=== PATIENT | male | born 1940 | race Caucasian/White ===

== ENCOUNTER 2020-08-23 12:51 | Inpatient (IN) | payer MEDICARE, SELFPAY ==
[2020-08-23] VITALS (7 sets, daily range): BP systolic 133–178; BP diastolic 52–99; PULSE 31–94; RESP 14–17; TEMP 36.2–36.5; O2SAT 96–100; BMI 23.9
--- NOTE | 2020-08-23 | ECHO_ITS ---
Patient Info Name: Leandro Geller Age: 80 years : 1940 Gender: Male Ht: 71 in Wt: 165 lbs BSA: 1.94 m2 HR: 32 bpm BP: 153 / 52 mmHg Heart Rhythm: Indeterminant Technical Quality: Good Exam Date: 08/23/2020 4:05 PM Exam Location: [facility] Patient Status: Emergency Admit Date: 08/23/2020 Staff Ordering Physician: Isidro Pozo MD [employer] [facility] Specialist: Yonatan Mcwilliams RDCS Attending Provider: Isidro Pozo MD Referring Physician: Sánchez FISH; Exam Type: CA echo doppler color flow Study Info Indications I44.2 - Atrioventricular block, complete Complete two-dimensional, color flow and Doppler transthoracic echocardiogram is performed. History/Risk Factors Complete heart block. Summary 1. Complete two-dimensional, color flow and Doppler transthoracic echocardiogram is performed. 2. Left ventricular chamber dimension is normal. 3. Left ventricular systolic function is normal, estimated at 65-70%. 4. There is mildly increased left ventricular wall thickness. 5. Left ventricular septal wall motion is normal. 6. The left ventricular diastolic function is indeterminate. 7. There is mild aortic valve calcification. 8. There is mild mitral valve regurgitation. 9. There is mild tricuspid valve regurgitation. Left Ventricle Left ventricular chamber dimension is normal. Left ventricular systolic function is normal, estimated at 65-70%. There is mildly increased left ventricular wall thickness. Left ventricular septal wall motion is normal. The left ventricular diastolic function is indeterminate. Right Ventricle Right ventricular chamber dimension is normal. Right ventricular systolic function is normal. Left Atria Left atrial chamber dimension is normal. Right Atria Right atrial chamber dimension is normal. Atrial Septum Intact interatrial septum visualized by color flow imaging. Aortic Valve The aortic valve is trileaflet. There is mild aortic valve sclerosis. There is no aortic valve stenosis. There is trace aortic valve regurgitation. There is mild aortic valve calcification. Pulmonic Valve The pulmonic valve is normal. There is no pulmonic valve stenosis. There is trace pulmonic regurgitation. Mitral Valve The mitral valve has thickened leaflets. There is no mitral valve stenosis. There is mild mitral valve regurgitation. Tricuspid Valve The tricuspid valve leaflets are normal. There is no significant tricuspid valve stenosis. There is mild tricuspid valve regurgitation. Pericardium/Pleural The pericardium appears normal. There is no pericardial effusion. Inferior Vena Cava Normal inferior vena cava with <50% collapse upon inspiration consistent with elevated right atrial pressure, 10 mmHg. Aorta The aortic root size at the sinus of Valsalva is normal. Left Ventricular Outflow Tract Name Value Normal LVOT 2D LVOT Diameter 2.2 cm Mitral Valve Name Value Normal MV Doppler
--- NOTE | ~2020-08-23 | XR_ITS ---
EXAMINATION: XR chest 2V EXAM DATE: 08/25/2020 08:15 INDICATION: Pacemaker insertion. TECHNIQUE: Frontal and lateral projections of the chest obtained and reviewed. Comparison is made to prior examination from 08/04/2020. FINDINGS: There is a dual lead pacemaker/AICD seen with leads projecting over the expected locations of the right atrial appendage and right ventricle. No confluent consolidation, pneumothorax or pleur al effusion suspected. Cardiomediastinal silhouette is normal. There are no osseous abnormalities jade ntified. IMPRESSION: No evidence postprocedure pneumothorax. Reviewed, dictated and finalized at location A. ITURE SERVICER
--- NOTE | ~2020-08-23 | XR_ITS ---
EXAMINATION: XR chest 1V portable EXAM DATE: 08/23/2020 14:12 INDICATION: Dizziness, lightheadedness. Bradycardia. TECHNIQUE: Portable AP frontal chest x-ray was obtained. There is no prior study for comparison. FINDINGS: Moderate chronic hyperinflation. The lungs are clear. There are no pleural effusions. The cardiomediastinal silhouette is within normal limits. There is no pneumothorax suspected. The bone s and soft tissues are unremarkable. IMPRESSION: 1. No acute cardiopulmonary findings. 2. Hyperinflation. Reviewed, dictated and finalized at location A. STACK CLOUD CONSULTING ARCHITECT
--- NOTE | ~2020-08-23 | XR_ITS ---
XR chest port-a-cath/central DATE: 08/24/2020 17:19 INDICATION: Pacemaker insertion TECHNIQUE: Portable AP chest on 08/16/2020 at 1718 hours COMPARISON: 08/23/2020 portable AP chest FINDINGS: Left-sided transvenous pacemaker device with leads overlying right atrium and right ventric le. Normal heart size. Mild aortic unfolding. No hilar or mediastinal enlargement. No pulmonary vascu lar congestion or pleural effusion. No pulmonary infiltrate or consolidation. Diffuse osteopenia. IMPRESSION: Left dual-lead pacemaker device No active cardiac pulmonary disease Reviewed, dictated and finalized at [facility]. Reviewed, dictated and finalized at [facility]. IFIED DIALYSIS TECHNICIAN
--- NOTE | 2020-08-23 13:02 | ECG_ITS ---
Measurements Intervals [place] Rate: 30 P: IN: 0 QRS: 225 QRSD: 161 T: -24 QT: 500 QTc: 358 Interpretive Statements SINUS RHYTHM WITH COMPLETE HEART BLOCK SLOW JUNCTIONAL ESCAPE RHYTHM RIGHT BUNDLE BRANCH BLOCK ABNORMAL ECG Electronically Signed On 08-23-2020 13:20:27 ELECTRICIAN TECHNICIAN by Irineo Shipley D.O.
[2020-08-23 13:47] LABS: Basophils Percent Auto 0.3 % (0.2-1.2); Eosinophils Percent Auto 0.6 % (0-4.4); Hematocrit 45.1 % (42.0-52.0); Hemoglobin 15.2 g/dL (14.0-18.0); Immature Granulocyte Absolute 0.04 K/mm3 (0.00-0.031); Immature Granulocyte Percent A 0.6 % (0-0.5); Immature Platelet Fraction Pct 5.3 % (0.9-11.2); Lymphocytes Absolute Auto 0.82 K/mm3 (0.9-3.2); Mean Corpuscular HGB Conc 33.7 g/dl (32-36); Mean Corpuscular Volume 91.9 fl (80-100); Mean Platelet Volume 11.1 fl (7.4-10.4); Monocytes Absolute Auto 0.6 K/mm3 (0.1-0.6); Monocytes Percent Auto 8.7 % (2.6-8.5); Neutrophils Absolute Auto 5.3 K/mm3 (1.3-6.7); Neutrophils Percent Auto 77.8 % (45.5-73.1); Platelet Count Result 137 k/mm3 (150-375); Red Blood Count 4.91 M/mm3 (4.6-6.20); Red Cell Distribution Width 13.2 % (11.5-14.5); White Blood Count 6.8 K/mm3 (4.5-10.0)
--- NOTE | 2020-08-23 13:57 | ED.ARRPALP ---
HPI - Arrhythmia/Palpitations General Chief Complaint: Arrhythmia/Palpitations Stated Complaint: lightheaded/dizziness Time Seen by Provider: 08/23/20 13:20 History of Present Illness HPI narrative: Patient is a 80-year-old male who presents ER with lightheadedness. First episode began last night while walking up steps. He got to the top of the steps when he had less than a second of lightheadedness for things went dark. He had no symptoms me after. Today while playing his car into his garage he had another episode like this. Because of these subsequent episodes he felt pertinent to come to the ER to be evaluated. He has not had any chest pain, no exertional shortness of breath or fatigue. No syncope. Patient does not take any rate control medications. Related Data Home Medications Medication Instructions Recorded Confirmed aspirin 81 mg tablet,delayed 81 mg PO 1700 06/21/19 08/23/20 release finasteride 5 mg tablet 5 mg PO DAILY 06/21/19 08/23/20 timolol maleate 0.5 % eye drops 1 drop LEFT EYE DAILY 06/21/19 08/23/20 latanoprost 1 drp EACH EYE QPM 08/23/20 08/23/20 terazosin 10 mg PO HS 08/23/20 08/23/20 Allergies Allergy/AdvReac Type Severity Reaction Status Date / Time hydrocodone Allergy Severe SWEATY, Verified 08/23/20 13:18 WEAKNESS, DIZZY FEELING penicillin G Allergy Unknown Unknown Verified 08/23/20 13:18 bacitracin Allergy Blister Verified 08/23/20 13:18 [From Neosporin ([id number])] neomycin Allergy Blister Verified 08/23/20 13:18 [From Neosporin ([id number])] polymyxin B Allergy Blister Verified 08/23/20 13:18 [From Neosporin ([id number])] GLUMA Allergy Severe GUM Uncoded 02/21/20 09:03 BLISTERS Review of Systems Review of Systems: All systems reviewed & are unremarkable except as noted in HPI and below Constitutional: Constitutional: Denies chills, Denies fever(s) and Denies weakness ENT: Denies nasal congestion and Denies sore throat Cardiovascular: Cardiovascular: Denies chest pain, Denies rapid heart rate, Denies radiating jaw, neck or arm pain and Denies slow heart rate Respiratory: Respiratory: Denies cough, Denies dyspnea and Denies wheezing Gastrointestinal: Gastrointestinal: Denies abdominal pain, Denies nausea and Denies vomiting Neurologic: Reports dizziness, Denies syncope and Denies numbness PMFSH Past Medical History Medical History (Updated 08/23/20 @ 23:42 by Isidro Pozo MD) Benign prostatic hyperplasia Cervical radiculopathy Essential hypertension Glaucoma Internal hemorrhoids Nephrolithiasis Prediabetes Surgical History Surgical History (Updated 08/23/20 @ 18:57 by Raven Alvarez PA-C) History of bilateral inguinal hernia repair History of bladder surgery Removal of benign bladder polyp. History of colonoscopy with polypectomy Tubular adenoma. History of cystoscopy History of excision of pilonidal cyst History of hemorrhoidectomy Family History Family History (Updated 08/23/20 @ 18:58 by Raven Alvarez PA-C) Sibling Diabetes mellitus Alcoholism Mother Patient's mother is from complications of emphysema. Father Patient's father is at the age of 49 from sepsis. Social History Social History (Updated 08/23/20 @ 18:59 by Raven Alvarez PA-C) Social History: The patient lives in [place] with his . They have 2 adult children, both of whom are adopted. Retired from [employer]. Lifelong nonsmoker. Drinks perhaps 1 beer a day at the most. No illicit substance use. He designates his Elinor as his surrogate decision maker and he wishes to be a full code. Alcohol intake: current Drinks per week: 7 Substance use: never Spiritual care concerns: No Exam Narrative: Exam Narrative: GENERAL: Well-appearing, well-nourished, and in no acute distress. HEAD: Normocephalic, atrau
[2020-08-23 14:01] LABS: Alanine Aminotransferase 101 U/L (4-50); Albumin Level 4.3 g/dL (3.5-5.1); Alkaline Phosphatase 75 U/L (38-126); Anion Gap 5 mmol/L (8-16); Aspartate Amino Transferase 43 U/L (17-59); Bilirubin,Total 0.8 mg/dL (0.2-1.3); Blood Urea Nitrogen 38 mg/dL (9-20); Calcium 9.3 mg/dL (8.4-10.2); Carbon Dioxide 26 mmol/L (22-30); Chloride 109 mmol/L (98-107); Estimated CRCL calculation 39 ml/min; Estimated Glomerular Filt Rate 59; Glucose 132 mg/dL (75-110); Potassium 4.6 mmol/L (3.4-5.0); Sodium 140 mmol/L (137-145)
[2020-08-23 14:16] LABS: Troponin I < 0.012 ng/mL (0.000-0.034)
[2020-08-23 14:32] LABS: Magnesium 2.2 mg/dL (1.6-2.3)
[2020-08-23 14:47] LABS: Add Urine Microscopic? YES; Appearance Urine Clear (Clear); Bilirubin Urine Negative (Negative); Blood Urine 1+ (Negative); Color Urine Yellow (Yellow); Glucose Urine UA Negative (Negative); Ketones Urine Trace mg/dL (Negative); Leukocyte Esterase Ur Trace LEU/UL (Negative); Mucus Urine Rare /lpf; Nitrate Urine Negative (Negative); Protein Urine 1+ mg/dL (Negative); Specific Grav Ur 1.029 (1.001-1.035); Urobilinogen Urine Negative mg/dL (<2.0)
--- NOTE | 2020-08-23 15:21 | PC.NURSE ---
SPOKE WITH DR PEDROZA VIA PHONE. HE IS REQUESTING THAT PT GET A STAT BEDSIDE ECHO TO EVALUATE PT'S EJECTION FRACTION. DR MEYER MADE AWARE. HE IS ALSO REQUESTING A TEMPORARY PACEMAKER FOR THE PT AND SAYS THAT SINCE WE DON'T HAVE A ER PHYSICIAN THAT CAN PUT ONE IN THAT DR HAGER OR DR BRADY WILL BE PLACING ONE FOR THE PT AND THAT DR HAGER WILL PLACE PERMANENT ONE TOMORROW.
--- NOTE | 2020-08-23 15:23 | PM.CNCAR ---
Assessment and Plan Assessment and plan (1) Complete heart block: Code(s): I44.2 - Atrioventricular block, complete Status: Acute Assessment and Plan: Patient has complete heart block. He will proceed to have a temporary pacemaker today. Permanent pacemaker is to be performed tomorrow by Dr. mota. He is not on any reversible medications. I will check a TSH and free T4 level. Obviously though given his wide complex escape rhythm and complete heart block, temporary pacemaker is warranted until permanent pacer can be placed tomorrow. (2) Pre-syncope: Code(s): R55 - Syncope and collapse Status: Acute Assessment and Plan: Secondary to above (3) Essential (primary) hypertension: Code(s): I10 - Essential (primary) hypertension Status: Acute Assessment and Plan: Above goal (4) Prediabetes: Code(s): R73.03 - Prediabetes Status: Acute History of Present Illness History of Present Illness Consult date/time: 08/23/20 15:23 Requesting physician: Isidro Pozo MD Consult reason: Other (Complete heart block) Reason For Visit: lightheaded/dizziness Narrative: Date of service 08/23/2020 History patient is a 80-year-old male who has had a couple episodes of presyncope over the past couple of days. Patient has been relatively inactive over the past several months because of COVID. He did have an episode of lightheadedness a few months ago whenever he stood up after drinking some coffee. He was outside trimming some trees recently 1 every felt more dyspneic than he typically would. His more acute symptoms of started yesterday. While starting to climb up some steps from his basement he felt severely lightheaded and nearly passed out but the symptoms only lasted for couple of seconds. He woke up this morning feeling fine. He was pulling into his driveway this morning whenever he also became acutely and severely lightheaded. He then went to Dr. Emmanuel is office where an EKG showed significant bradycardia. He was then sent to the emergency room where EKG shows complete heart block with a right bundle branch appearing escape beats with a heart rate in the 20s to 30s. Occasionally narrow complex beats are seen but generally speaking a wider complex escape rhythm. He has had some shortness of breath. Otherwise no chest pain, syncope, paroxysmal nocturnal dyspnea, orthopnea, edema palpitations. Review of Systems Review of Systems: All systems reviewed & are unremarkable except as noted in HPI and below Constitutional: Constitutional: Reports weakness Eyes: Eyes: Denies blurry vision ENT: Reports Normal hearing present Cardiovascular: Cardiovascular: Denies chest pain and Reports lightheadedness Respiratory: Respiratory: Reports dyspnea Gastrointestinal: Gastrointestinal: Denies abdominal pain Genitourinary: Genitourinary: Denies dysuria Musculoskeletal: Musculoskeletal: Denies back pain and Denies neck pain Integumentary/Breasts: Skin/Breast: Denies dry skin Neurologic: Denies headache(s) and Denies numbness Psychiatric: Psychiatric: Denies anxiety and Denies confusion Endocrine: Endocrine: Denies fatigue Hematologic/Lymphatic: Hematologic/Lymphatic: Denies easy bleeding Allergic/Immunologic: Allergic/Immunologic: Denies GI upset with certain foods PMFSH Past Medical History Medical History (Updated 08/23/20 @ 15:29 by Eris Chavarria MD) Cervical radiculopathy Essential (primary) hypertension Prediabetes Surgical History Surgical History H/O hernia repair Family History Family History Sibling Diabetes mellitus Mother Patient's mother is Father Patient's father is Social History Social History Smoking status: Never smoker Al
--- NOTE | 2020-08-23 15:35 | PC.NURSE ---
DIRECTOR TECHNICAL AT BEDSIDE FOR ECHOCARDIOGRAM
--- NOTE | 2020-08-23 16:01 | WPDMODSED ---
Moderate Sedation Note-Pt Data Patient Data Allergies Allergy/AdvReac Type Severity Reaction Status Date / Time hydrocodone Allergy Severe SWEATY, Verified 08/23/20 13:18 WEAKNESS, DIZZY FEELING penicillin G Allergy Unknown Unknown Verified 08/23/20 13:18 bacitracin Allergy Blister Verified 08/23/20 13:18 [From Neosporin ([id number])] neomycin Allergy Blister Verified 08/23/20 13:18 [From Neosporin ([id number])] polymyxin B Allergy Blister Verified 08/23/20 13:18 [From Neosporin ([id number])] GLUMA Allergy Severe GUM Uncoded 02/21/20 09:03 BLISTERS Home Medications Medication Instructions Recorded Confirmed Type aspirin 81 mg tablet,delayed 81 mg PO DAILY 06/21/19 08/17/20 History release finasteride 5 mg tablet 5 mg PO DAILY 06/21/19 08/17/20 History timolol maleate 0.5 % eye drops 1 drop EACH EYE Q12H 06/21/19 08/17/20 History travoprost 0.004 % eye drops 1 drop EACH EYE QPM 06/21/19 08/17/20 History terazosin 10 mg capsule 10 mg PO DAILY #90 cap 10/04/19 08/17/20 Rx Current Medications: Active Medications Acetaminophen (Acetaminophen 325 Mg Tablet) 650 mg PO Q4H PRN PRN Reason: Mild Pain (1-3) or Fever Promethazine HCl (Promethazine Hcl 25 Mg/Ml Ampul) 12.5 mg IV PUSH Q6H PRN PRN Reason: Nausea Sedation/Anesthesia: No previous sedation/anesthesia problems (including family history). [facility] Past Medical History Medical History (Updated 08/23/20 @ 15:29 by Eris Chavarria MD) Cervical radiculopathy Essential (primary) hypertension Prediabetes Surgical History Surgical History H/O hernia repair Family History Family History Sibling Diabetes mellitus Mother Patient's mother is Father Patient's father is Social History Social History Smoking status: Never smoker Alcohol intake: current Mod Sed Physical Exam Physical Exam Pre Procedural Exam: Normal: Airway Hours since solid foods: 5 Hours since liquid intake: 5 Internal Medicine - PN: Obj Da Vital Signs Vital Signs: Vital Signs - 24 hr 08/23/20 13:12 08/23/20 14:32 08/23/20 15:03 Temperature 36.5 C Pulse Rate 94 63 31 L Respiratory Rate 16 14 17 Blood Pressure 133/59 L 178/99 H 153/52 H Pulse Oximetry 100 100 100 08/23/20 15:42 Temperature Pulse Rate 64 Respiratory Rate 16 Blood Pressure 161/64 H Pulse Oximetry 100 Meds/Results Medications: Active Medications Generic Name Dose Route Start Last Admin Trade Name Freq PRN Reason Stop Dose Admin Acetaminophen 650 mg 08/23/20 15:12 Acetaminophen 325 Mg Tablet PO Q4H PRN Mild Pain (1-3) or Fever Promethazine HCl 12.5 mg 08/23/20 15:12 Promethazine Hcl 25 Mg/Ml Ampul IV PUSH Q6H PRN Nausea Radiology Results: ITS Impressions Chest X-Ray 08/23/20 14:14 IMPRESSION: 1. No acute cardiopulmonary findings. 2. Hyperinflation. Labs CBC & Chem 7: 08/23/20 13:37 08/23/20 13:37 Labs: Laboratory Results - last 24 hr 08/23/20 08/23/20 08/23/20 13:37 13:37 13:37 WBC 6.8 RBC 4.91 Hgb 15.2 Hct 45.1 MCV 91.9 MCH 31.0 MCHC 33.7 RDW 13.2 Plt Count 137 L MPV 11.1 H Immature Gran % (Auto) 0.6 H Neut % (Auto) 77.8 H Lymph % (Auto) 12.0 L [place] % (Auto) 8.7 H Eos % (Auto) 0.6 Baso % (Auto) 0.3 Lymph # (Auto) 0.82 L [place] # (Auto) 0.6 Eos # (Auto) 0.0 Baso # (Auto) 0.0 Abs Immat Gran (auto) 0.04 H Absolute Neuts (auto) 5.3 Absolute Nucleated RBC 0.0 Nucleated RBC % 0.0 % Immature Plt Fraction 5.3 Sodium 140 Potassium 4.6 Chloride 109 H Carbon Dioxide 26 Anion Gap 5 L BUN 38 H Creatinine 1.20 Estim Creat Clear Roman
--- NOTE | 2020-08-23 16:02 | P.PCNCC_ITS ---
Cardiac Cath Procedure Note Date of procedure:: 08/23/20 Performing physician:: Toby Bedoya MD Procedure Procedure note:: INSERTION AND PLACEMENT OF TEMPORARY PACEMAKER DATE OF PROCEDURE: 08/23/2020 INDICATION FOR PROCEDURE: symptomatic complete heart block BRIEF CLINICAL HISTORY:80-year-old male with past medical history of BPH, glaucoma. Patient was brought to the hospital with complaints of dizziness. Patient was found to have complete heart block with slow ventricular response. Patient reports that he is on medications for glaucoma including timolol eyedrops. Since patient is in complete heart block and has been symptomatic, temporary transvenous pacemaker placement was recommended before consideration for permanent pacemaker placement. Bedside echocardiogram in the petroleum refinery laborer on preliminary assessment showed preserved LV systolic function. Benefits and risks of the procedure were discussed with the patient in depth, and informed consent was obtained prior to the procedure. Risks of the procedure include but are not limited to vascular complications including groin hematoma, retroperitoneal bleed, vessel perforation; cardiac chamber perforation, cardiac arrhythmias, pericardial effusion, and . After discussing all the benefits, risks and alternatives, patient was willing to proceed with the procedure. PROCEDURES PERFORMED: 1. Emergent temporary pacemaker placement ( right common femoral venous access) 2. Bedside echocardiogram 3. Moderate sedation-CPT code 32301 MODERATE SEDATION: Midazolam 1 mg; fentanyl 25 mcg; Start time 1612 , Stop time 1618 ; Total likd-md-lowe time 6 minutes; Chante Blanco RN was trained observer for moderate sedation. ACCESS SITE: Right common femoral vein PROCEDURE NOTE: After obtaining informed consent, patient was emergently brought to catheterization lab and prepped and draped in a usual sterile manner. After local anesthesia with lidocaine, right common femoral venous access was taken with micropuncture needle followed by insertion of a 6 F sheath. A balloon tipped temporary transvenous pacemaker was advanced under fluoroscopic guidance and was positioned near RV apex. The balloon was deflated. Pacing was initiated at 60 beats per minute with an output of 2 mA. The sheath was secured in place with sutures and patient will be transferred to ICU. He tolerated procedure well without any immediate procedure related complications. CONCLUSIONS: Placement of temporary transvenous pacemaker through right common femoral venous access. PLAN/RECOMMENDATIONS: 1. Admit to ICU. 2. Monitor closely on telemetry. Keep leg straight, and avoid excessive body limb movement. Watch for any dislodgement of the pacemaker wire. 3. Hold timolol eyedrops . Watch for any improvement in the intrinsic rhythm after washout period. 4. Evaluation and candidacy for permanent pacemaker placement by tomorrow. 5. Patient's - Elinor was updated about patient's clinical presentation and the procedure at 1629. This document was completed by using [employer] Direct speech recognition software, therefore, irrigation engineer variances may occur.
--- NOTE | 2020-08-23 16:56 | ADMGEN ---
This patient, Leandro Geller, was admitted to Intensive Care Unit-8. Patient/family oriented to hospital policies and general routines including ID bracelet, bed and alarms, visiting hours, pain management, procedures, bathroom and other care routines, personal items, smoking policy, room service/diet, and visiting hours. Information on how to activate the Rapid Response Team has been discussed. Patient/Family are encouraged to report perceived risks to care and to ask questions if they do not understand what they are told or what they should do.
--- NOTE | 2020-08-23 17:00 | PM.IMHP ---
H&P: HPI History of Present Illness Date/Time: 08/23/20 17:00 Chief Complaint: Near syncope. Narrative: This is a relatively healthy 80-year-old male with hypertension no longer on medication, benign prostatic hyperplasia, and glaucoma who presented to the emergency department earlier today for evaluation after a near syncopal episode. He was in his usual state of health when he woke this morning and went to the local library. Upon returning home and entering the garage he became severely lightheaded and nearly lost consciousness. A similar episode occurred last night while walking up a flight of steps and perhaps about a month ago while outside trimming trees. He felt a bit short of breath with these episodes as well. He was seen by his primary care provider today where an EKG showed significant bradycardia, prompting him to be sent to the emergency department. On arrival to the ED his heart rate was in the 20s to 30s with an EKG showing complete heart block. He is now status post temporary transcutaneous pacemaker per Dr. Bedoya. He has no complaints at the time my evaluation any specifically denies fever, chills, sweats, current lightheadedness, chest pain, pleuritic pain, palpitations, shortness of breath, nausea, and vomiting. No new medications or recent change in medications. Review of Systems Review of Systems: Narrative: Twelve systems were reviewed with pertinent positives and negatives as per HPI. No fever, chills, or sweats. No recent cold or flu-like symptoms. Due to COVID-19 pandemic he has not been as active as usual. Occasional mild lower extremity edema, typically noticeable when taking his socks off at night, which resolves within about 10 minutes. No exertional chest pain. No known history of cardiovascular disease. Except as documented, all other systems were reviewed and are negative. [facility] Past Medical History Medical History (Updated 08/23/20 @ 19:15 by Raven Alvarez PA-C) Benign prostatic hyperplasia Cervical radiculopathy Essential hypertension Glaucoma Internal hemorrhoids Nephrolithiasis Prediabetes Surgical History Surgical History (Updated 08/23/20 @ 18:57 by Raven Alvarez PA-C) History of bilateral inguinal hernia repair History of bladder surgery Removal of benign bladder polyp. History of colonoscopy with polypectomy Tubular adenoma. History of cystoscopy History of excision of pilonidal cyst History of hemorrhoidectomy Family History Family History (Updated 08/23/20 @ 18:58 by Raven Alvarez PA-C) Sibling Diabetes mellitus Alcoholism Mother Patient's mother is from complications of emphysema. Father Patient's father is at the age of 49 from sepsis. Social History Social History (Updated 08/23/20 @ 18:59 by Raven Alvarez PA-C) Social History: The patient lives in [place] with his . They have 2 adult children, both of whom are adopted. Retired from [employer]. Lifelong nonsmoker. Drinks perhaps 1 beer a day at the most. No illicit substance use. He designates his Elinor as his surrogate decision maker and he wishes to be a full code. Alcohol intake: current Drinks per week: 7 Substance use: never Spiritual care concerns: No Meds Home Medications and Allergies Home Medications Medication Instructions Recorded Confirmed Type aspirin 81 mg tablet,delayed 81 mg PO 1700 06/21/19 08/23/20 History release finasteride 5 mg tablet 5 mg PO DAILY 06/21/19 08/23/20 History timolol maleate 0.5 % eye drops 1 drop LEFT EYE DAILY 06/21/19 08/23/20 History latanoprost 1 drp EACH EYE QPM 08/23/20 08/23/20 History terazosin 10 mg PO HS 08/23/20 08/23/20 History Allergies Allergy/AdvReac Type Severity Reaction Status Date / Time hydrocodone Allergy Severe SWEATY, Verified 08/23/20 13:18 WEAKNESS, DIZZY FEELING penicillin G Allergy Unknown Unk
[2020-08-23] MEDS: TERAZOSIN HCL 5 MG CAPSULE 10 MG PO (20:56)
[2020-08-23] MEDS: ALPRAZolam (*CRX) 0.25 MG TABLET PO (20:56)
[2020-08-23 22:58] LABS: T4 Thyroxine 9.13 ug/dL (5.53-11.0)
[2020-08-24] VITALS (22 sets, daily range): BP systolic 114–153; BP diastolic 62–96; PULSE 60–84; RESP 13–22; TEMP 36.3–37.2; O2SAT 95–100
[2020-08-24 04:25] LABS: Hemoglobin 15.5 g/dL (14.0-18.0); Mean Corpuscular HGB Conc 33.7 g/dl (32-36); Mean Corpuscular Volume 89.1 fl (80-100); Mean Platelet Volume 10.8 fl (7.4-10.4); Platelet Count Result 101 k/mm3 (150-375); Red Blood Count 5.16 M/mm3 (4.6-6.20); Red Cell Distribution Width 12.6 % (11.5-14.5); White Blood Count 7.3 K/mm3 (4.5-10.0)
[2020-08-24 05:00] LABS: Anion Gap 3 mmol/L (8-16); Blood Urea Nitrogen 24 mg/dL (9-20); Calcium 8.8 mg/dL (8.4-10.2); Carbon Dioxide 27 mmol/L (22-30); Chloride 109 mmol/L (98-107); Estimated CRCL calculation 57 ml/min; Estimated Glomerular Filt Rate > 60; Glucose 97 mg/dL (75-110); Potassium 3.7 mmol/L (3.4-5.0); Sodium 139 mmol/L (137-145)
[2020-08-24 05:56] LABS: Hemoglobin A1C 5.4 % (<5.7)
[2020-08-24] MEDS: FINASTERIDE 5 MG TABLET PO (07:35)
--- NOTE | 2020-08-24 09:42 | WPDCNINT ---
Assessment and Plan Assessment and plan (1) Complete heart block: Code(s): I44.2 - Atrioventricular block, complete Status: Acute Assessment and Plan: Patient now status post transvenous pacemaker placement Currently is pacemaker dependent and is paced at a rate of 60 Asymptomatic and blood pressure is adequate Plan to place permanent pacemaker today Continue ICU monitoring TSH was normal ECHO 2. Left ventricular chamber dimension is normal. 3. Left ventricular systolic function is normal, estimated at 65-70%. 4. There is mildly increased left ventricular wall thickness. 5. Left ventricular septal wall motion is normal. 6. The left ventricular diastolic function is indeterminate. 7. There is mild aortic valve calcification. 8. There is mild mitral valve regurgitation. 9. There is mild tricuspid valve regurgitation. (2) Essential (primary) hypertension: Code(s): I10 - Essential (primary) hypertension Status: Acute Assessment and Plan: P.r.n. hydralazine at this time (3) Pre-syncope: Code(s): R55 - Syncope and collapse Status: Acute Assessment and Plan: Secondary to complete heart block and bradycardia Symptoms resolved at this time (4) Thrombocytopenia: Code(s): D69.6 - Thrombocytopenia, unspecified Status: Acute Assessment and Plan: Patient has thrombocytopenia which is mild Baseline unknown no sign of bleeding Not on any anticoagulation at this time SCDs for DVT prophylaxis (5) Abnormal urinalysis: Code(s): R82.90 - Unspecified abnormal findings in urine Status: Acute Assessment and Plan: Patient has slightly abnormal urinalysis with trace leukocytes esterase and 7-9 wbc's He denies any symptoms of dysuria hematuria foul-smelling urine of fever Urine culture is sent and is pending Hold antibiotics at this time Principle Industrial Hygienist Consult Note Consult date: 08/24/20 Time Seen: 07:15 HPI: Leandro Geller is a 80 year old male with past medical history of hypertension but no longer on medication, benign prostatic hyperplasia, and glaucoma who presented to the emergency department yesterday for evaluation after a near syncopal episode. He was in his usual state of health when he woke this morning and went to the local library. Upon returning home and entering the garage he became severely lightheaded and nearly lost consciousness. He was able to park his car safely and get out and was asymptomatic after that. A similar episode occurred the night before while walking up a flight of steps. Patient went to see his primary care physician and his EKG showed significant bradycardia and he was referred to ER. On arrival to the ED his heart rate was in the 20s to 30s with an EKG showing complete heart block. Patient was taken to mini lab operator by Cardiology and a transvenous pacemaker was placed through right femoral vein under fluoro a echo was performed. Patient admitted to ICU postprocedure for further evaluation management. This morning patient feels better. Does feel anxious and feels that he may have similar symptoms again although denies any actual dizziness or lightheadedness at this time. He denies any specific complaints but feels anxious about his current condition. Patient denies fever, chest pain, shortness of breath, cough, nausea, vomiting, abdominal pain, diarrhea, headache or constipation. No dizziness lightheadedness or headache no fever. Other systems were reviewed and were negative Review of Systems Review of Systems: All systems reviewed & are unremarkable except as noted in HPI and below (HPI) [facility] Past Medical History Medical History Benign prostatic hyperplasia Cervical radiculopathy Essential hypertension Glaucoma Internal hemorrhoids Nephrolithiasis Prediabetes Surgical History Surgical History (Reviewed 08/24/20 @ 09:42 by Adolfo Cota
--- NOTE | 2020-08-24 14:08 | WPDHPUPDATE1 ---
History and Physical Update Update Date/Time: 08/24/20 14:08 History and Physical has been reviewed, including an updated exam of the patient. Patient was admitted with complete heart block, symptomatic, requiring a temporary transvenous pacemaker yesterday. He remains ventricularly pacing. Planning a dual-chamber permanent transvenous pacemaker today. There are NO changes in the patient's condition. Risks, benefits, and alternatives have been discussed and questions answered. Reviewed risks of pacemaker implant with patient. These include breathing problems, allergic reactions, bleeding, infection, pneumothorax, cardiac puncture, need for unanticipated surgery, lead dislodgement among others. Patient agrees to proceed with procedure.
--- NOTE | 2020-08-24 14:09 | WPDMODSED ---
Moderate Sedation Note-Pt Data Patient Data Diagnosis: Symptomatic complete heart block, intermittent wide complex escape rhythm, status post temporary transvenous pacemaker Present Complaint: Symptomatic complete heart block, bradycardia Procedure to be performed/Plan: Conscious sedation Venogram Implantation of a permanent dual-chamber pacemaker Allergies Allergy/AdvReac Type Severity Reaction Status Date / Time hydrocodone Allergy Severe SWEATY, Verified 08/23/20 13:18 WEAKNESS, DIZZY FEELING penicillin G Allergy Unknown Unknown Verified 08/23/20 13:18 bacitracin Allergy Blister Verified 08/23/20 13:18 [From Neosporin ([id number])] neomycin Allergy Blister Verified 08/23/20 13:18 [From Neosporin ([id number])] polymyxin B Allergy Blister Verified 08/23/20 13:18 [From Neosporin ([id number])] GLUMA Allergy Severe GUM Uncoded 02/21/20 09:03 BLISTERS Home Medications Medication Instructions Recorded Confirmed Type aspirin 81 mg tablet,delayed 81 mg PO 1700 06/21/19 08/23/20 History release finasteride 5 mg tablet 5 mg PO DAILY 06/21/19 08/23/20 History timolol maleate 0.5 % eye drops 1 drop LEFT EYE DAILY 06/21/19 08/23/20 History latanoprost 1 drp EACH EYE QPM 08/23/20 08/23/20 History terazosin 10 mg PO HS 08/23/20 08/23/20 History Current Medications: Active Medications Acetaminophen (Acetaminophen 325 Mg Tablet) 650 mg PO Q4H PRN PRN Reason: Mild Pain (1-3) or Fever Alprazolam (Alprazolam (*Crx) 0.25 Mg Tablet) 0.25 mg PO HS PRN PRN Reason: Anxiety Last Admin: 08/23/20 20:56 Dose: 0.25 mg Documented by: Finasteride (Finasteride 5 Mg Tablet) 5 mg PO DAILY ABEL Last Admin: 08/24/20 07:35 Dose: 5 mg Documented by: Latanoprost (Latanoprost 0.005% Op Soln 2.5 Ml Btl) 1 drop EACH EYE QPM ABEL Promethazine HCl (Promethazine Hcl 25 Mg/Ml Ampul) 12.5 mg IV PUSH Q6H PRN PRN Reason: Nausea Terazosin HCl (Terazosin Hcl 5 Mg Capsule) 10 mg PO HS [facility] Last Admin: 08/23/20 20:56 Dose: 10 mg Documented by: Sedation/Anesthesia: No previous sedation/anesthesia problems (including family history). [facility] Past Medical History Medical History Benign prostatic hyperplasia Cervical radiculopathy Essential hypertension Glaucoma Internal hemorrhoids Nephrolithiasis Prediabetes Surgical History Surgical History History of bilateral inguinal hernia repair History of bladder surgery Removal of benign bladder polyp. History of colonoscopy with polypectomy Tubular adenoma. History of cystoscopy History of excision of pilonidal cyst History of hemorrhoidectomy Family History Family History Sibling Diabetes mellitus Alcoholism Mother Patient's mother is from complications of emphysema. Father Patient's father is at the age of 49 from sepsis. Social History Social History Social History: The patient lives in [place] with his . They have 2 adult children, both of whom are adopted. Retired from [employer]. Lifelong nonsmoker. Drinks perhaps 1 beer a day at the most. No illicit substance use. He designates his Elinor as his surrogate decision maker and he wishes to be a full code. Alcohol intake: current Drinks per week: 7 Substance use: never Spiritual care concerns: No Mod Sed Physical Exam Physical Exam Pre Procedural Exam: Normal: Appearance (Anxious), Eyes, Ears, Nose, Neck, Throat, Airway, Lungs, Heart Size, Heart Rate, Heart Rhythm, Neuro Exam, Abdomen, Extremities and Skin (right subclavian area fee of lesions) Hours since solid foods: 12 Hours since liquid intake: 12 Internal Medicine - PN: Obj Da Vital Signs
--- NOTE | 2020-08-24 16:27 | PM.OP ---
Procedure Note - Brief Procedure Note - Brief Date of procedure: 08/24/20 Pre-op diagnosis: complete heart block Post-op diagnosis: same Procedure performed: Conscious sedation, Venogram Implantation of a permanent dual-chamber pacemaker Description of procedure: uneventful implantation of a permanent Biotronik dual-chamber pacemaker. Removal of the temporary pacing wire. Anesthesia: local ( And conscious sedation) Surgeon: Gin Amador MD Drains: No Packing: No Pathology: none sent Complications: None Condition: stable Disposition: floor
--- NOTE | 2020-08-24 16:30 | PM.PROC ---
Procedure Note - Detailed Date of procedure: 08/24/20 Pre-op diagnosis: complete heart block Post-op diagnosis: same Procedure performed: Conscious sedation Venogram Implantation of a permanent dual-chamber pacemaker Description of procedure: PROCEDURE PERFORMED: Conscious sedation Venogram Placement of a permanent dual-chamber pacemaker SITE: Left prepectoral area MEDICATIONS GIVEN IN ACADEMIC SUCCESS COORDINATOR: vancomycin 1 gram IV piggyback CONSCIOUS SEDATION: Assessment: The patient has no history of anesthesia problems. The patient's oropharynx is clear. The patient was deemed to be a good candidate for conscious sedation. The patient had continuous hemodynamic monitoring during the procedure. Start time: 1458 Completion time: 16 10 Total conscious sedation time: 72 minutes Medications: fentanyl 125 mcg, Versed 6 mg IV push Trained observer: Ritu Vanessa RN Outcome: The patient tolerated the procedure well with no complications. PROCEDURE: After informed consent , the patient was brought to the laboratory asst and the left prepectoral area was prepped and draped in usual fashion . The patient received preop antibiotic and conscious sedation . The left prepectoral area was anesthetized with lidocaine . A venogram was performed showing the course of the left subclavian vein,which was patent. Next a skin incision was made and carried down to the prepectoral fascia. Hemostasis was obtained using electrocautery . The pacer pocket was formed. The left subclavian vein was easily accessed with the micropuncture technique, and a J-tip guide wire was passed into the superior vena cava under fluoroscopic guidance . The needle was withdrawn . A 2nd wire was introduced in an identical fashion. A 6 Swazi Swazi safety sheath was passed over the lateral wire, the wire withdrawn, and the right ventricular lead was passed into the inferior vena cava under fluoroscopic guidance . The lead was then prolapsed through the tricuspid valve and advanced onto the right ventricular septum. When suitable sensing and pacing thresholds were obtained, it was screwed into place. No extra cardiac stimulation was obtained using 10 volts. The sheath was withdrawn. Next, another 6 Swazi safety sheath was passed over the more medial wire, the wire withdrawn, and the right atrial lead was passed into the inferior vena cava under fluoroscopic guidance. Right atrial lead was then pulled back to the level of the right atrium and manipulated into the right atrial appendage . When suitable sensing and pacing thresholds were obtained , it was screwed into place . No extra cardiac stimulation was obtained using 10 volts. The sheath was withdrawn. Both leads were secured to the prepectoral fascia using 2-0 silk over their respective sleeves. The pocket was cleansed with antibiotic containing solution . The pulse generator was introduced into the operative field, and both leads were secured into the generator . A gentle tug showed the leads were securely fastened. The device was introduced into the pocket. the temporary pacing wire was removed under fluoroscopic guidance and the permanent leads remained stable. The subcutaneous tissues were closed in a double layer fashion with interrupted sutures, using 2-0 Vicryl suture , and the skin was closed in a continuous fashion using 4-0 Vicryl suture in a continuous fashion. The area was cleansed, and an Aquacel dressing was applied . The patient tolerated the procedure well with no complications. PACEMAKER INFORMATION: Pulse generator: Biotronik Edora 8 DR-T, serial number [id number] Right atrial lead: Biotronik Solia S 53, serial number [id number] Right ventricular lead: Biotronik Solia S60, serial [id number] MEASURED DATA: Right atrial: 8.1 mV, impedance 780 Ohms, threshold 0.6 volts at 0.4 milliseconds Right ventricular lead: R-wave sensing 9.7 mV (rare R-wave seen ), impedance 760 Ohms, threshold 1.2 volts
--- NOTE | 2020-08-24 16:52 | ECG_ITS ---
Measurements Intervals [place] Rate: 65 P: 72 NC: 183 QRS: 88 QRSD: 149 T: -69 QT: 447 QTc: 466 Interpretive Statements ATRIAL SENSE- ELECTRONIC VENTRICULAR PACEMAKER NO FURTHER INTERPRETATION IS POSSIBLE ABNORMAL ECG Electronically Signed On 08-24-2020 18:46:54 ROUTER SETTER by Irineo Shipley D.O.
--- NOTE | 2020-08-24 17:28 | PC.NURSE ---
1700 Pt returned from Pacemaker placement to left chest. Drsg dry and intact. Arm sling placed. 12 lead EKG done. Portable CXR done. Pt drinking sips of clear liquids without nausea or vomiting. Dr Amador in to talk with patient and answering questions.
--- NOTE | 2020-08-24 17:35 | PC.NURSE ---
Pt report received from Luisa Keane RN. All questions answered and patient care assume.
--- NOTE | 2020-08-24 18:00 | PC.NURSE ---
Pt resting comfortably in bed with call light in reach. No complaints. Denies pain. Dressing to left chest and right groin clean, dry, and intact. Sling to left arm in place. VSS. Paced rhythm in the 60s-70s. Will continue to monitor.
[2020-08-24] MEDS: ASPIRIN 81 MG ENTERIC TABLET PO (18:51)
[2020-08-24] MEDS: LATANOPROST 0.005% OP SOLN 2.5 ML BTL 1 DROP EACH EYE (18:51)
--- NOTE | 2020-08-24 19:09 | PC.NURSE ---
Patient report given to Shireen Warner RN. All questions answered and patient care transferred.
[2020-08-24] MEDS: TERAZOSIN HCL 5 MG CAPSULE 10 MG PO (20:40)
[2020-08-25] VITALS: BP 128/70; PULSE 66; PULSE 69; PULSE 76; RESP 17; RESP 20; TEMP 36.3; O2SAT 98
[2020-08-25 02:00] VITALS: PULSE 64
[2020-08-25 04:00] VITALS: BP 125/69; PULSE 57; PULSE 61; PULSE 64; RESP 16; TEMP 36.9; O2SAT 98
[2020-08-25 06:00] VITALS: PULSE 62
[2020-08-25 07:38] LABS: Basophils Percent Auto 0.3 % (0.2-1.2); Eosinophils Percent Auto 0.5 % (0-4.4); Hematocrit 44.3 % (42.0-52.0); Hemoglobin 15.1 g/dL (14.0-18.0); Immature Granulocyte Absolute 0.03 K/mm3 (0.00-0.031); Immature Granulocyte Percent A 0.4 % (0-0.5); Immature Platelet Fraction Pct 3.7 % (0.9-11.2); Lymphocytes Absolute Auto 0.75 K/mm3 (0.9-3.2); Lymphocytes Percent Auto 10.3 % (18.3-44.2); Mean Corpuscular HGB Conc 34.1 g/dl (32-36); Mean Corpuscular Hemoglobin 30.6 pg (26-34); Mean Corpuscular Volume 89.7 fl (80-100); Mean Platelet Volume 10.5 fl (7.4-10.4); Monocytes Absolute Auto 0.7 K/mm3 (0.1-0.6); Neutrophils Absolute Auto 5.7 K/mm3 (1.3-6.7); Neutrophils Percent Auto 78.5 % (45.5-73.1); Platelet Count Result 109 k/mm3 (150-375); Red Blood Count 4.94 M/mm3 (4.6-6.20); Red Cell Distribution Width 12.9 % (11.5-14.5); White Blood Count 7.3 K/mm3 (4.5-10.0)
[2020-08-25 08:00] VITALS: BP 126/70; PULSE 73; PULSE 91; RESP 20; TEMP 36.7; O2SAT 95
--- NOTE | 2020-08-25 08:25 | SUR.PREOP ---
03/24/21 1200 LEFT CHEST AREA PREPPED, QUESTIONS ANSWERED. sALINE LOCK TO THE LEFT ARM FLUSHED.
[2020-08-25] MEDS: FINASTERIDE 5 MG TABLET PO (08:26)
[2020-08-25] MEDS: TIMOLOL MALEATE 0.25% OP SOLN 5 ML BOTTLE 1 DROP LEFT EYE (08:26)
[2020-08-25] MEDS: polyethylene glycoL 3350 17 GM POWD.PACK PO (08:37)
[2020-08-25 10:00] VITALS: PULSE 61
--- NOTE | 2020-08-25 11:22 | PM.PNCARD ---
Progress Note: A&P Assessment and Plan (1) Complete heart block: Code(s): I44.2 - Atrioventricular block, complete Status: Acute Assessment and Plan: Patient has complete heart block. Status post Biotronik dual chamber pacer. Okay for discharge. Chest x-ray shows no pneumothorax. (2) Pre-syncope: Code(s): R55 - Syncope and collapse Status: Acute Assessment and Plan: Secondary to above (3) Essential (primary) hypertension: Code(s): I10 - Essential (primary) hypertension Status: Acute Assessment and Plan: Above goal (4) Prediabetes: Code(s): R73.03 - Prediabetes Status: Acute Subjective Date/time seen: 08/25/20 11:22 Interval history: 80-year-old with complete heart block status post Biotronik dual chamber pacer yesterday. Date of service 08/25/2020: Feels fine. No chest pain, shortness of breath. No complaint Review of Systems Review of Systems: All systems reviewed & are unremarkable except as noted in HPI and below Constitutional: Constitutional: Denies fatigue, Denies headache(s) and Reports weakness Eyes: Eyes: Denies blurry vision ENT: Reports Normal hearing present, Denies headache(s) and Denies neck pain Cardiovascular: Cardiovascular: Denies chest pain, Reports lightheadedness and Reports dyspnea Respiratory: Respiratory: Reports dyspnea Gastrointestinal: Gastrointestinal: Denies abdominal pain Genitourinary: Genitourinary: Denies dysuria Musculoskeletal: Musculoskeletal: Denies back pain, Denies neck pain and Denies numbness Integumentary/Breasts: Skin/Breast: Denies dry skin Neurologic: Reports Normal hearing present, Denies confusion, Denies headache(s), Denies numbness and Reports weakness Psychiatric: Psychiatric: Denies anxiety and Denies confusion Endocrine: Endocrine: Denies fatigue Hematologic/Lymphatic: Hematologic/Lymphatic: Denies easy bleeding Allergic/Immunologic: Allergic/Immunologic: Denies GI upset with certain foods Exam Narrative: Exam Narrative: Alert and oriented. Appears to be in no acute distress Const: General: comfortable and no acute distress; No confusion Orientation/consciousness: No confusion HENMT: General nose exam: Normal nares present Eyes: Sclera: sclerae normal Neck: Neck: supple and no JVD Chest: Other: No reproducible chest wall pain to palpation. Left upper chest bandage is in place. There is no significant swelling underneath of the bandage. Arm is in a sling. Resp: Auscultation: clear to auscultation bilaterally Cardio: Other: 1/6 systolic ejection murmur Right groin is stable without hematoma ecchymosis or bruit Skin: General skin exam: normal color Neuro: General: No confusion Cranial nerves: Yes Normal hearing present Speech: normal speech Extrem: General: normal to inspection Psych: Mental Status: mental status grossly normal Objective Data Vital Signs Vital Signs: Vital Signs - 24 hr 08/24/20 12:00 08/24/20 14:00 08/24/20 16:45 Temperature 36.7 C Pulse Rate 60 60 65 Respiratory Rate 18 17 16 Blood Pressure 144/67 H 153/78 H 152/81 H Pulse Oximetry 97 97 97 08/24/20 17:00 08/24/20 17:15 08/24/20 17:30 Temperature 37.2 C Pulse Rate 67 66 68 Respiratory Rate 18 19 22 H Blood Pressure 139/75 140/82 153/74 H Pulse Oximetry 96 98 98 08/24/20 17:45 08/24/20 18:00 08/24/20 18:15 Temperature Pulse Rate 65 77 76 Respiratory Rate 18 21 H Blood Pressure 140/66 140/65 Pulse Oximetry 98 98 08/24/20 18:45 08/24/20 19:45 08/24/20 20:00 Temperature 36.9 C Pulse Rate 72 79 84 Respiratory Rate 17 18 17 Blood Pressure 150/72 H 129/62 Pulse Oximetry 99 95 95 08/24/20 20:45 08/24/20 21:45 08/24/20 22:00 Temperature Pulse Rate 74 84 77 Respiratory Rate 19 21 H Blood Pressure 133/72 125/67 Pulse Oximetry 99 08/24/20 22:45 08/25/20 00:00 08/25/20 02:00 Temperature 36.3 C L Pulse Rate 76 66 64 Res
--- NOTE | 2020-08-26 18:11 | PM.DS ---
DS: Admitting Diagnosis Admitting Diagnosis Admitting Diagnosis: 3rd degree heart block DS: Discharge Diagnosis Discharge Diagnosis (1) Complete heart block: Code(s): I44.2 - Atrioventricular block, complete Status: Acute Assessment and Plan: Patient was admitted with near syncopal episode found to be in heart block after evaluating his primary care's office. Was taken to the cardiac [facility] labs were it temporary pacer was placed until 08/24 when a dual chamber He had no complications and able to be discharged home on the . Will follow-up next week for wound check and follow-up in September with Dr. ernst (2) Essential hypertension: Code(s): I10 - Essential (primary) hypertension Status: Inactive Assessment and Plan: Pressure remained well controlled on trazodone which he will continue (3) Benign prostatic hyperplasia: Code(s): N40.0 - Benign prostatic hyperplasia without lower urinary tract symptoms Status: Inactive Assessment and Plan: Continue on his finasteride and terazosin at home (4) Glaucoma: Code(s): H40.9 - Unspecified glaucoma Status: Inactive Assessment and Plan: Continues usual eyedrops timolol (5) Thrombocytopenia: Code(s): D69.6 - Thrombocytopenia, unspecified Status: Acute Assessment and Plan: Platelets were slightly decreased and stabilized above 100 and at 109. on discharge. B12 levels normal above 400. Patient will follow-up with his primary care for further evaluation DS: Summary Hospital Course Hospital Course: 80-year-old healthy male mild hypertension and BPH presented to his primary care's office Dr. Emmanuel with complaints of near-syncope and fatigue. Found to be in heart block was directed to the hospital where he was taken to the cardiac lab for a temporary pacer was placed. Permanent dual chamber pacer was placed 08/24 without complications and able to be discharged home on 08/25. Will follow-up next week for wound check can [address] campo Platelets were slightly decreased with no previous history and he willl have that rechecked with Dr. Emmanuel as an outpatient Time Spent with Patient Time attestation: Total time spent providing and/or coordinating discharge services: 35 minutes Exam Narrative: Exam Narrative: Condition on discharge Blood pressure 126/70 pulse is 90 regular saturating 95% on room air afebrile Lungs clear CV regular rate rhythm Abdomen soft nontender Extremities without edema, left arm in sling He was up in about independent and stable to be discharged home Discharge Plan Discharge Attending physician on discharge: Yeison Walters Consulting providers: Sherly Tristan ; Eris Cmapo Discharging Clinician: Yeison Walters Patient Disposition: Home, Self-Care Activity: other - see discharge instructions Diet: as tolerated Wound Care Instructions: keep dressing dry Discharge Instructions: --Keep the special Aquacel bandage on the incision until it is removed by [facility] nurse on your follow-up visit --Keep the dressing clean and dry; no showering above the waist, or swimming until it is removed next week --A small amount of tenderness, puffiness and bruising around the site is normal. Call if any significant pain, drainage, swelling, or redness around the site. --No lifting > 15 pound or exercise with the affected arm for 4 weeks. --Keep the affected arm below shoulder height for 4 weeks. --DO NOT TOUCH OR RUB THE INCISION. No lotions or ointments on the incision. --OK to resume driving in 3-4 days when the area is no longer tender or sore. Can place a washcloth or handkerchief over the pacemaker area so the seatbelt does not rub on the area. Patient Instructions: Antibiotic Form, Pacemaker (DC) Stand Alone Forms: General Discharge Information Follow-up/Referrals: Eris Campo MD [Physician] - Other (08/30 @ 2:30
== END 2020-08-25 12:50 | disposition home or self-care (01) | DRG 244 ==
LOC: ANHED 15:20 → ANHICU 16:54 → ANHCPC 08-25 11:07 → ANHICU 08-29 14:04
PROVIDERS: Internal Medicine Cardiovascular Disease; Physician Assistant; Admitting Provider Family Medicine; Emergency Provider Emergency Medicine; PCP Family Medicine; Visit Provider Internal Medicine
PROC: 02HK3JZ Insertion of Pacemaker Lead into Right Ventricle, Percutaneous Approach (ICD-10-PCS; CPT 33210; principal; 2020-08-23 15:45)
PROC: 0JH606Z Insertion of Pacemaker, Dual Chamber into Chest Subcutaneous Tissue and Fascia, Open Approach (ICD-10-PCS; CPT 33208; principal; 2020-08-24 11:30)
DX: I44.2 Atrioventricular block, complete (principal); R55 Syncope and collapse; I10 Essential (primary) hypertension; N40.0 Benign prostatic hyperplasia without lower urinary tract symptoms; H40.9 Unspecified glaucoma; D69.6 Thrombocytopenia, unspecified; M54.12 Radiculopathy, cervical region; R73.03 Prediabetes; R82.90 Unspecified abnormal findings in urine
CPT/HCPCS: 33208; 33210; 36415; 71045; 71046; 80048; 80053; 81001; 82607; 83036; 83735; 84436; 84443; 84484; 85025; 85027; 85055; 87086; 87088; 93005; 93306; 99285; A9270; C1779; C1785; C1894; G0378; J1644; J2250; J3010; J3370; J7040

== ENCOUNTER → 2020-12-16 01:58 | Outpatient (CLI) | payer MEDICARE, SELFPAY ==
[2020-12-16 19:56] LABS: SARS-CoV-2 RNA PCR Negative
== END ==
PROVIDERS: PCP Family Medicine; Visit Provider Internal Medicine Gastroenterology
DX: Z01.812 Encounter for preprocedural laboratory examination (principal); Z20.822 Contact with and (suspected) exposure to COVID-19
CPT/HCPCS: C9803; U0003; U0005

== ENCOUNTER 2020-12-20 02:39 | Day surgery (SDC) | payer MEDICARE, SELFPAY ==
[2020-12-08 13:43] VITALS: BMI 23.1
[2020-12-20 07:52] VITALS: BP 138/77; PULSE 78; RESP 16; TEMP 36.1; O2SAT 98; BMI 22.3
[2020-12-20] MEDS: LACTATED RINGERS 1,000 ML 150 ML IV CONT (08:06)
--- NOTE | 2020-12-20 08:24 | WPDANESEPPF ---
Anes - Initial Pre Proc Eval Procedure: Operation Date: 12/20/20 08:45 Proposed Procedures p Screening Colonoscopy - Jay Tyson MD Date/Time: 12/20/20 08:24 Surgeon: Jay Tyson MD Pre Op Diagnosis: hx of colon polyps Patient Data Age: 80 Gender: M Height: 5 ft 11 in Weight: 72.6 kg Last Vital Signs Temp 96.9 F L 12/20/20 07:52 Pulse 78 12/20/20 07:52 Resp 16 12/20/20 07:52 BP 138/77 12/20/20 07:52 Pulse Ox 98 12/20/20 07:52 Allergies Allergy/AdvReac Type Severity Reaction Status Date / Time hydrocodone Allergy Severe SWEATY, Verified 12/20/20 07:51 WEAKNESS, DIZZY FEELING penicillin G Allergy Unknown Unknown Verified 12/20/20 07:51 bacitracin Allergy Blister Verified 12/20/20 07:51 [From Neosporin ([id number])] neomycin Allergy Blister Verified 12/20/20 07:51 [From Neosporin ([id number])] polymyxin B Allergy Blister Verified 12/20/20 07:51 [From Neosporin ([id number])] GLUMA Allergy Severe GUM Uncoded 12/20/20 07:51 BLISTERS Home Medications Medication Instructions Recorded Confirmed Type finasteride 5 mg tablet 5 mg PO DAILY 06/21/19 12/20/20 History timolol maleate 0.5 % eye drops 1 drop LEFT EYE DAILY 06/21/19 12/20/20 History latanoprost 1 drp EACH EYE QPM 08/23/20 12/20/20 History terazosin 10 mg capsule See Rx Instructions .ROUTE 09/18/20 12/20/20 Rx .COMPLEX #90 capsule Vitamin D2 1,000 mcg PO DAILY 12/08/20 12/20/20 History Patient hx anesthesia problems: none Family hx anesthesia problems: none PMFSH Past Medical History Medical History Benign prostatic hyperplasia Cervical radiculopathy Essential hypertension Glaucoma Internal hemorrhoids Nephrolithiasis Prediabetes Surgical History Surgical History History of bilateral inguinal hernia repair History of bladder surgery Removal of benign bladder polyp. History of colonoscopy with polypectomy Tubular adenoma. History of cystoscopy History of excision of pilonidal cyst History of hemorrhoidectomy Family History Family History Sibling Diabetes mellitus Alcoholism Mother Patient's mother is from complications of emphysema. Father Patient's father is at the age of 49 from sepsis. Social History Social History Social History: The patient lives in [place] with his . They have 2 adult children, both of whom are adopted. Retired from [employer]. Lifelong nonsmoker. Drinks perhaps 1 beer a day at the most. No illicit substance use. He designates his Elinor as his surrogate decision maker and he wishes to be a full code. Alcohol intake: current Drinks per week: 7 Substance use: never Living arrangements: with family Spiritual care concerns: No Anes - Eval Final PreProcedure Day of Procedure 12/20/20 08:24 Patient weight: normal Heart: regular rate and rhythm Lungs: clear to auscultation Airway: Mallampati scale class II Neurological: alert and oriented Last oral intake: >/= 8 hours ASA classification: III Emergent: no Anesthetic plan: proceed Anesthesia type and monitoring: general GIVS and standard monitoring Informed Consent: The patient's anesthetic plan and its attendant risks and benefits were discussed with the patient/family/POA. Questions were solicited and answers provided to the satisfaction of the patient/family/POA.
--- NOTE | 2020-12-20 08:46 | WPDGICN ---
Assessment and Plan Assessment and plan (1) History of colon polyps: Code(s): Z86.010 - Personal history of colonic polyps Status: Acute Assessment and Plan: Patient has a distant history of colon polyps. For this reason surveillance colonoscopy is suggested at this time and consider to 5 year intervals in the future. GI Consult Note Consult date/time: 12/20/20 08:46 HPI: Leandro Geller is a 80 year old male Presents for screening colonoscopy. Patient has a distant history of colon polyps. He reports polyps in 2001. Most recent colonoscopy was in 2014. Patient states that his current weight appetite bowel movements are normal. Patient denies abdominal pain. He has had no bleeding. Family history is noncontributory. Review of Systems Review of Systems: All systems reviewed & are unremarkable except as noted in HPI and below PMFSH Past Medical History Medical History Benign prostatic hyperplasia Cervical radiculopathy Essential hypertension Glaucoma Internal hemorrhoids Nephrolithiasis Prediabetes Surgical History Surgical History History of bilateral inguinal hernia repair History of bladder surgery Removal of benign bladder polyp. History of colonoscopy with polypectomy Tubular adenoma. History of cystoscopy History of excision of pilonidal cyst History of hemorrhoidectomy Family History Family History Sibling Diabetes mellitus Alcoholism Mother Patient's mother is from complications of emphysema. Father Patient's father is at the age of 49 from sepsis. Social History Social History Social History: The patient lives in [place] with his . They have 2 adult children, both of whom are adopted. Retired from [employer]. Lifelong nonsmoker. Drinks perhaps 1 beer a day at the most. No illicit substance use. He designates his Elinor as his surrogate decision maker and he wishes to be a full code. Alcohol intake: current Drinks per week: 7 Substance use: never Living arrangements: with family Spiritual care concerns: No Meds Home Medications and Allergies Home Medications Medication Instructions Recorded Confirmed Type finasteride 5 mg tablet 5 mg PO DAILY 06/21/19 12/20/20 History timolol maleate 0.5 % eye drops 1 drop LEFT EYE DAILY 06/21/19 12/20/20 History latanoprost 1 drp EACH EYE QPM 08/23/20 12/20/20 History terazosin 10 mg capsule See Rx Instructions .ROUTE 09/18/20 12/20/20 Rx .COMPLEX #90 capsule Vitamin D2 1,000 mcg PO DAILY 12/08/20 12/20/20 History Allergies Allergy/AdvReac Type Severity Reaction Status Date / Time hydrocodone Allergy Severe SWEATY, Verified 12/20/20 07:51 WEAKNESS, DIZZY FEELING penicillin G Allergy Unknown Unknown Verified 12/20/20 07:51 bacitracin Allergy Blister Verified 12/20/20 07:51 [From Neosporin ([id number])] neomycin Allergy Blister Verified 12/20/20 07:51 [From Neosporin ([id number])] polymyxin B Allergy Blister Verified 12/20/20 07:51 [From Neosporin ([id number])] GLUMA Allergy Severe GUM Uncoded 12/20/20 07:51 BLISTERS Vital Signs Vital Signs - 24 hr 12/20/20 07:52 Temperature 96.9 F L Pulse Rate 78 Respiratory Rate 16 Blood Pressure 138/77 Pulse Oximetry 98 Exam Narrative: Exam Narrative: Physical exam reveals patient be alert. Vital signs stable. HEENT exam is unremarkable. Patient is anicteric. Lungs are clear to auscultation and percussion. Heart is without murmur or extra sounds. Abdominal exam bowel sounds are present soft nontender with no organomegaly. Digital external rectal exam is normal.
[2020-12-20 09:22] VITALS: BP 112/72; PULSE 65; RESP 18; O2SAT 98
[2020-12-20 09:32] VITALS: BP 119/72; PULSE 61; RESP 18; O2SAT 98
[2020-12-20 09:42] VITALS: BP 126/74; PULSE 62; RESP 17; O2SAT 99
== END 2020-12-20 09:55 | disposition home or self-care (01) ==
PROVIDERS: PCP Family Medicine; Visit Provider Internal Medicine Gastroenterology
PROC: 0DJD8ZZ Inspection of Lower Intestinal Tract, Via Natural or Artificial Opening Endoscopic (ICD-10-PCS; CPT 45378; principal; 2020-12-20 08:45)
DX: Z12.11 Encounter for screening for malignant neoplasm of colon (principal); Z86.010 Personal history of colon polyps; N40.0 Benign prostatic hyperplasia without lower urinary tract symptoms; M54.12 Radiculopathy, cervical region; I10 Essential (primary) hypertension; H40.9 Unspecified glaucoma; R73.03 Prediabetes; K64.8 Other hemorrhoids; D12.0 Benign neoplasm of cecum
CPT/HCPCS: 45385; 88305; J2704; J7120

== ENCOUNTER 2022-03-20 12:25 | Emergency (ER) | payer MEDICARE, SELFPAY ==
--- NOTE | ~2022-03-20 | CT_ITS ---
EXAMINATION: CT abdomen pelvis wo con DATE: 03/20/2022 16:17 INDICATION: Left lower quadrant pain TECHNIQUE: Computed tomography (CT) of the abdomen and pelvis was performed without intravenous contr ast. The dose-length product (DLP) was 314.00 mGy-cm. Automated exposure control and iterative recons truction technique were employed. COMPARISON: 10/15/2006 FINDINGS: Minimal dependent atelectasis is present in the lung bases. The heart size is normal. The l iver, spleen, pancreas, gallbladder, and adrenal glands are normal. There are peripelvic cysts of the kidneys. There is a 7 mm cyst of the right kidney. No pathologically enlarged abdominal or pelvic ly mph nodes are identified. There is no free intraperitoneal gas or evidence of bowel obstruction. Ther e is a 3 mm stone in the distal left ureter. There are multiple stones in the urinary bladder. There is chronic wall thickening of the urinary bladder. Changes of bilateral inguinal hernia repair are no barrett. Colonic diverticulosis is present without evidence of diverticulitis. A large volume of colonic stool is present. There is moderate lumbar spondylosis. Bone islands are noted in the pelvis and lowe r spine. IMPRESSION: 1. 3 mm stone of the distal left ureter without significant hydroureteronephrosis. 2. Multiple urinary bladder stones with chronic wall thickening of the urinary bladder. Reviewed, dictated and finalized at location B. IMPRESSION: 1. 3 mm stone of the distal left ureter without significant hydroureteronephros is. 2. Multiple urinary bladder stones with chronic wall thickening of the urinary bladder.
[2022-03-20 12:28] VITALS: BP 141/79; PULSE 90; RESP 14; TEMP 36.9; O2SAT 99
[2022-03-20 12:53] LABS: Basophils Percent Auto 0.4 % (0.2-1.2); Eosinophils Percent Auto 0.3 % (0-4.4); Hematocrit 47.1 % (42.0-52.0); Hemoglobin 15.7 g/dL (14.0-18.0); Immature Granulocyte Absolute 0.02 K/mm3 (0.00-0.031); Immature Granulocyte Percent A 0.3 % (0-0.5); Lymphocytes Absolute Auto 0.82 K/mm3 (0.9-3.2); Lymphocytes Percent Auto 11.1 % (18.3-44.2); Mean Corpuscular HGB Conc 33.3 g/dl (32-36); Mean Corpuscular Hemoglobin 30.4 pg (26-34); Mean Corpuscular Volume 91.1 fl (80-100); Mean Platelet Volume 10.2 fl (7.4-10.4); Monocytes Absolute Auto 0.6 K/mm3 (0.1-0.6); Monocytes Percent Auto 7.6 % (2.6-8.5); Neutrophils Absolute Auto 5.9 K/mm3 (1.3-6.7); Neutrophils Percent Auto 80.3 % (45.5-73.1); Platelet Count Result 163 k/mm3 (150-375); Red Blood Count 5.17 M/mm3 (4.6-6.20); Red Cell Distribution Width 12.9 % (11.5-14.5); White Blood Count 7.4 K/mm3 (4.5-10.0)
[2022-03-20 12:54] LABS: Appearance Urine Clear (Clear); Bilirubin Urine Negative (Negative); Blood Urine 1+ (Negative); Color Urine Yellow (Yellow); Glucose Urine UA Negative (Negative); Ketones Urine 1+ mg/dL (Negative); Leukocyte Esterase Ur Negative LEU/UL (Negative); Nitrate Urine Negative (Negative); Protein Urine Negative (Negative); Specific Grav Ur 1.025 (1.001-1.035); Urobilinogen Urine 0.2 mg/dL (<2.0); pH Urine 5.5 (5.0-9.0)
[2022-03-20 13:06] LABS: Mucus Urine Rare /lpf; Squamous Epithelial Cell Urine Rare /hpf (Few); Uric Acid Crystals Urine Present /hpf; WBC Urine 0-3 /hpf
[2022-03-20 13:07] LABS: Alanine Aminotransferase 15 U/L (6-50); Albumin Level 4.7 g/dL (3.5-5.1); Alkaline Phosphatase 83 U/L (38-126); Anion Gap 9 mmol/L (8-16); Aspartate Amino Transferase 22 U/L (17-59); Bilirubin,Total 0.9 mg/dL (0.2-1.3); Blood Urea Nitrogen 29 mg/dL (9-20); Calcium 9.1 mg/dL (8.4-10.2); Carbon Dioxide 24 mmol/L (22-30); Chloride 104 mmol/L (98-107); Estimated Glomerular Filt Rate 58; Glucose 132 mg/dL (65-110); Lipase 54 U/L (23-300); Potassium 4.8 mmol/L (3.4-5.0); Sodium 137 mmol/L (137-145)
[2022-03-20 13:12] LABS: Add Urine Microscopic? YES
--- NOTE | 2022-03-20 14:41 | PC.NURSE ---
pt. requested family member go home. RN called and updated family on pt. behalf.
[2022-03-20 15:03] VITALS: BP 150/78; PULSE 81; RESP 18; O2SAT 98
--- NOTE | 2022-03-20 15:49 | ED.ABDPAIN ---
HPI - Abdominal Pain General Chief Complaint: Abdominal Pain Stated Complaint: Abd pain Time Seen by Provider: 03/20/22 15:03 History of Present Illness HPI narrative: This is an 82-year-old male with past medical history of nephrolithiasis, presenting the emergency department with intermittent left lower quadrant abdominal pain. He states this began approximately 3 weeks ago, but worse in the last 4 days. He states 4 days ago he was playing golf when he noted 4 of 10 left lower quadrant pain, described as cramping and intermittent. This intermittently improved and worsened again last night reaching 7 out of 10. He also notes increased urination overnight without dysuria. He denies fevers, chills, vomiting, blood in stool or loose stools. Related Data Home Medications Medication Instructions Recorded Confirmed finasteride 5 mg tablet 5 mg PO DAILY 06/21/19 03/18/22 timolol maleate 0.5 % eye drops 1 drop LEFT EYE DAILY 06/21/19 03/18/22 (Timoptic) latanoprost 0.005 % eye drops 1 drp EACH EYE QPM 08/23/20 03/18/22 Allergies Allergy/AdvReac Type Severity Reaction Status Date / Time hydrocodone Allergy Severe SWEATY, Verified 03/20/22 08:50 WEAKNESS, DIZZY FEELING penicillin G Allergy Unknown Unknown Verified 03/20/22 08:50 bacitracin Allergy Blister Verified 03/20/22 08:50 [From Neosporin ([id number])] neomycin Allergy Blister Verified 03/20/22 08:50 [From Neosporin ([id number]-[id number])] polymyxin B Allergy Blister Verified 03/20/22 08:50 [From Neosporin ([id number])] GLUMA Allergy Severe GUM Uncoded 03/20/22 08:50 BLISTERS Review of Systems Review of Systems: CONSTITUTIONAL: Denies fever, chills, or sweats. EYES: Denies visual changes, redness, or discharge. ENT: Denies rhinorrhea, congestion, sore throat, or otalgia. CARDIOVASCULAR: Denies chest pain, palpitations, or edema. RESPIRATORY: Denies cough or dyspnea. GASTROINTESTINAL: +abdominal pain, Denies nausea, vomiting, or diarrhea. GENITOURINARY: Increased urination denies dysuria or hematuria. SKIN: Denies rash or itching. MUSCULOSKELETAL: Denies back pain, joint pain, or myalgia. NEUROLOGIC: Denies headache, numbness, dizziness, or weakness. PSYCHIATRIC: Denies anxiety or depression. [facility] Past Medical History Medical History Benign prostatic hyperplasia Cervical radiculopathy Essential hypertension Glaucoma Internal hemorrhoids Nephrolithiasis Pacemaker Prediabetes Surgical History Surgical History History of bilateral inguinal hernia repair History of bladder surgery Removal of benign bladder polyp. History of colonoscopy with polypectomy Tubular adenoma. History of cystoscopy History of excision of pilonidal cyst History of hemorrhoidectomy Family History Family History Sibling Diabetes mellitus Alcoholism Mother Patient's mother is from complications of emphysema. Father Patient's father is at the age of 49 from sepsis. Social History Social History Social History: The patient lives in [place] with his . They have 2 adult children, both of whom are adopted. Retired from [employer]. Lifelong nonsmoker. Drinks perhaps 1 beer a day at the most. No illicit substance use. He designates his Elinor as his surrogate decision maker and he wishes to be a full code. Smoking status: Never smoker Alcohol intake: current Drinks per week: 7 Substance use: never Spiritual care concerns: No Exam Narrative: GENERAL: Well-appearing, well-nourished, and in no acute distress. HEAD: Normocephalic, atraumatic. EYES: PERRLA and EOMI. ENT: Nares clear, no rhinorrhea or
[2022-03-20] MEDS: KETOROLAC 15 MG/ML VIAL (*BKC) IV PUSH (16:47)
[2022-03-20 17:46] VITALS: BP 143/95; PULSE 60; RESP 18; O2SAT 99
== END 2022-03-20 17:48 | disposition home or self-care (01) ==
PROVIDERS: Emergency Provider Preventive Medicine Aerospace Medicine; PCP Family Medicine
DX: N20.1 Calculus of ureter (principal); N40.0 Benign prostatic hyperplasia without lower urinary tract symptoms; I10 Essential (primary) hypertension; H40.9 Unspecified glaucoma; R73.03 Prediabetes; Z95.0 Presence of cardiac pacemaker; Z87.442 Personal history of urinary calculi
CPT/HCPCS: 36415; 74176; 80053; 81001; 83690; 85025; 96374; 99284; J1885

== ENCOUNTER 2022-04-03 07:44 | Outpatient (CLI) | payer MEDICARE, SELFPAY ==
--- NOTE | 2022-04-03 08:00 | ECG_ITS ---
Measurements Intervals [place] Rate: 72 P: 82 TN: 164 QRS: 104 QRSD: 164 T: 72 QT: 423 QTc: 464 Interpretive Statements ATRIAL SENSE- ELECTRONIC VENTRICULAR PACEMAKER BASELINE ARTIFACT- I, II, III, AVR, AVL, AVF NO FURTHER INTERPRETATION IS POSSIBLE ATYPICAL ECG COMPARED TO ECG 08/24/2020 17:07:55 NO SIGNIFICANT CHANGES Electronically Signed On 04-03-2022 8:22:52 CDT by Irineo Shipley D.O.
[2022-04-03 08:40] LABS: INR 1.1; Partial Thromboplastin Time 26.6 SECONDS (22.3-36.8); Prothrombin Time 13.5 Seconds (11.1-14.7)
== END 2022-04-03 07:45 | disposition home or self-care (01) ==
LOC: ANHSURGERY 07:54
PROVIDERS: PCP Family Medicine; Visit Provider Urology
DX: Z01.818 Encounter for other preprocedural examination (principal); N21.0 Calculus in bladder; I10 Essential (primary) hypertension; Z95.0 Presence of cardiac pacemaker; Z51.81 Encounter for therapeutic drug level monitoring; Z79.899 Other long term (current) drug therapy
CPT/HCPCS: 36415; 85610; 85730; 87086; 93005

== ENCOUNTER 2022-04-07 12:37 | Outpatient (CLI) | payer MEDICARE, SELFPAY ==
--- NOTE | ~2022-04-07 | CT_ITS ---
EXAMINATION: CT abdomen pelvis wo con DATE: 04/07/2022 13:02 INDICATION: Left inguinal pain TECHNIQUE: Computed tomography (CT) of the abdomen and pelvis was performed without intravenous contr ast. The dose-length product (DLP) was 174.54 mGy-cm. Automated exposure control and iterative recons truction technique were employed. COMPARISON: 03/20/2022 FINDINGS: Minimal dependent atelectasis is present in the lung bases. The heart size is normal. The l iver, spleen, pancreas, gallbladder, and adrenal glands are normal. There are peripelvic cysts of the kidneys. There is a 7 mm cyst of the right kidney. There is a 5 mm stone in the distal left ureter. Multiple stones are again seen in the urinary bladder. There is chronic wall thickening of the urinar y bladder. Colonic diverticulosis is present without evidence of diverticulitis. Changes of bilateral inguinal hernia repair are noted. No pathologically enlarged abdominal or pelvic lymph nodes are jade ntified. There is no free intraperitoneal gas or evidence of bowel obstruction. A large volume of col onic stool is present. There is moderate lumbar spondylosis. IMPRESSION: 1. 5 mm stone in the distal left ureter without significant change. 2. Multiple stones in the urinary bladder with chronic thickening of the bladder wall. Reviewed, dictated and finalized at location B. IMPRESSION: 1. 5 mm stone in the distal left ureter without significant change. 2. Multiple stones in the urinary bladder with chronic thickening of the bladde r wall.
--- NOTE | ~2022-04-07 | XR_ITS ---
EXAMINATION: XR abdomen/kub 1V INDICATION: Left ureteral stone TECHNIQUE: Supine views of the abdomen were obtained on 2 radiographs. COMPARISON: CT from today FINDINGS: The known distal left ureteral stone is not well demonstrated. There are multiple bladder s tones as seen on the comparison CT. Changes of bilateral inguinal hernia repair are noted. There is a large volume of colonic stool. The visualized lung bases are clear. IMPRESSION: 1. Multiple bladder stones. Known distal left ureteral stone not well demonstrated. Reviewed, dictated and finalized at location B. IMPRESSION: 1. Multiple bladder stones. Known distal left ureteral stone not well demonstra barrett.
== END 2022-04-07 12:38 | disposition home or self-care (01) ==
PROVIDERS: PCP Family Medicine; Visit Provider Urology
DX: N20.1 Calculus of ureter (principal); N21.0 Calculus in bladder
CPT/HCPCS: 74018; 74176

== ENCOUNTER 2022-04-09 01:10 | Day surgery (SDC) | payer MEDICARE, SELFPAY ==
--- NOTE | 2022-03-28 09:30 | PC.NURSE ---
Report to the Outpatient Waiting Room, entrance under the green pavilion located off [facility], at time _0630 on date 04/09/22 . OR Time: _0830 . - You and your visitor will be asked to self-screen and do not enter if you have any COVID symptoms. - Only one visitor and NO children visitors are allowed at this time. - The patient visitor is requested to leave or wait in car when not with patient due to restrictions. - A mask is required within the hospital. Patients may have clear liquids (water, carbonated beverages, clear teas, apple juice) until 3 hours prior to surgery with a maximum of 20 ounces. - No food from midnight until time of surgery - Infants may have breast milk until 4 hours before surgery, infant formula 6 hours prior to surgery. - Children will be allowed to drink immediately following surgery. If applicable, please bring a bottle or sippy cup to assist with drinking. Juice, water, soda, and popsicles are readily available. For infants on formula, please bring formula the day of surgery. Pacifiers are allowed. Take the following medications with a SIP of water the morning of surgery: EYE DROP Medications to discontinue per physician ____ALL VITAMINS AND SUPPLEMENTS 3 DAYS PRE OP Date to take last dose____04/05/22 Please no make-up, nail albanian, hairspray, perfume, deodorant, or body powder the day of surgery. No jewelry (including any body piercings) or valuables the day of surgery, leave them at home. Please take a shower or bath the night before, or the morning of, surgery with an antibacterial soap. Wear comfortable, loose fitting clothing. Children are encouraged to wear pajamas. - Jewelry must be removed prior to entering the operating room. Rings and piercings that are not removed may be cut off. - The hospital will not accept responsibility for valuables. - Please leave all valuables, including medications, at home the day of surgery. If you are going home after surgery, a licensed four horse hitch driver must drive you home. - NO public transportation without another adult. - We recommend that an adult stay with you for 24 hours following discharge. - We also recommend that you do not drive, make important decision, drink alcoholic beverages, or take any drugs that were not prescribed by your health care provider for at least 24 hours after your discharge time. For Pediatric surgeries, we recommend two adults accompany the child home (only one inside the building at this time). Follow any additional instructions given to you from your surgeon. If you or anyone in your household have experienced Covid symptoms in the past week, please notify your surgeon or the nurse liaison at the phone number below for possible testing. Telephone instructions given to __PATIENT and asked if any additional questions and then verbalized understanding. Patient advised to call surgeon office or pre surgery nurse liaison [phone] if any additional questions.
[2022-03-28 11:06] VITALS: BMI 22.3
[2022-04-09] VITALS (8 sets, daily range): BP systolic 120–154; BP diastolic 67–85; PULSE 59–78; RESP 10–19; TEMP 36.3–36.4; O2SAT 96–100
--- NOTE | ~2022-04-09 | XR_ITS ---
EXAMINATION: XR retrograde pyelo w/stent LT DATE: 04/09/2022 11:34 INDICATION: Left ureteral stone. TECHNIQUE: 6 fluoroscopic images of the abdomen and pelvis were obtained during procedure performed rangel Rouse. Radiologist was not present for the imaging or procedure. The amount of fluoroscopy t frances used during this procedure was 0.2 minutes. COMPARISON: [facility] dated 04/07/2022 FINDINGS: Images demonstrate cannulation and retrograde contrast injections into the left ureter. No urothelial irregularities identified in the contrast opacified portions of the left renal collecting system and ureter. A wire and subsequently internal ureteral stent there advanced into the left renal pelvis. T he internal ureteral stent with loops back upon itself in the renal pelvis with distal tip of the amy tiform distal loop positioned in the proximal most left ureter. The distal loop of the stent is forme d in the bladder. Surgical clips and phleboliths in the pelvis. Small bone island at the left sacral ala. The previous noted distal left ureteral stone is unable to be identified. IMPRESSION: 1. Previously noted distal left ureteral stone is not identified, unclear whether this is passed the interval since the prior study, reflux back into the renal collecting system or been extracted. Corre late with procedure note. 2. Left internal ureteral stent placement as detailed above. Reviewed, dictated and finalized at [facility]. IMPRESSION: 1. Previously noted distal left ureteral stone is not identified, unclear wheth er this is passed the interval since the prior study, reflux back into the zelda l collecting system or been extracted. Correlate with procedure note. 2. Left internal ureteral stent placement as detailed above.
[2022-04-09] MEDS: LACTATED RINGERS 1,000 ML 30 ML IV CONT ×2 (07:18→10:18)
--- NOTE | 2022-04-09 07:40 | WPDANESEPPF ---
Anes - Initial Pre Proc Eval Procedure: Operation Date: 04/09/22 08:30 Proposed Procedures p Cystoscopy, Holmium Laser of Bladder Calculus, Possible Left Retrograde Pyelogram, Possible Left Ureteroscopy, Possible Left Stone Extraction, Possible Left Stent Placement, - Delano Rouse MD s Possible Trans Urethral Resection Prostate - Delano Rouse MD Date/Time: 04/09/22 07:40 Surgeon: Delano Rouse MD Pre Op Diagnosis: left ureteral stone, bladder stone Patient Data Age: 82 Gender: M Height: 1.8 m Weight: 71.8 kg Last Vital Signs Temp 36.4 C L 04/09/22 07:29 Pulse 78 04/09/22 07:29 Resp 16 04/09/22 07:29 BP 138/80 04/09/22 07:29 Pulse Ox 97 04/09/22 07:29 O2 Del Method Room Air 04/09/22 07:29 Allergies Allergy/AdvReac Type Severity Reaction Status Date / Time hydrocodone Allergy Severe SWEATY, Verified 04/09/22 07:28 WEAKNESS, DIZZY FEELING penicillin G Allergy Unknown Unknown Verified 04/09/22 07:28 bacitracin Allergy Blister Verified 04/09/22 07:28 [From Neosporin ([id number])] neomycin Allergy Blister Verified 04/09/22 07:28 [From Neosporin ([id number])] polymyxin B Allergy Blister Verified 04/09/22 07:28 [From Neosporin ([id number])] GLUMA Allergy Severe GUM Uncoded 04/09/22 07:28 BLISTERS Home Medications Medication Instructions Recorded Confirmed Type finasteride 5 mg tablet 5 mg PO DAILY 06/21/19 04/09/22 History timolol maleate 0.5 % eye drops 1 drop LEFT EYE DAILY 06/21/19 04/09/22 History (Timoptic) latanoprost 0.005 % eye drops 1 drp EACH EYE QPM 08/23/20 04/09/22 History terazosin 10 mg capsule See Rx Instructions .Route 09/10/21 04/09/22 Rx .COMPLEX #90 caps cholecalciferol (vitamin D3) 25 25 mcg PO DAILY #1 cap 03/18/22 04/09/22 Rx mcg (1,000 unit) capsule acetaminophen 500 mg capsule 500 mg PO Q8H PRN pain #30 caps 03/20/22 04/09/22 Rx Patient hx anesthesia problems: none Family hx anesthesia problems: none Results Review: All pre-operative results and documents have been reviewed as part of the pre-operative evaluation. [facility] Past Medical History Medical History Benign prostatic hyperplasia Cervical radiculopathy Essential hypertension Glaucoma Internal hemorrhoids Nephrolithiasis Pacemaker Prediabetes Surgical History Surgical History History of bilateral inguinal hernia repair History of bladder surgery Removal of benign bladder polyp. History of colonoscopy with polypectomy Tubular adenoma. History of cystoscopy History of excision of pilonidal cyst History of hemorrhoidectomy Family History Family History Sibling Diabetes mellitus Alcoholism Mother Patient's mother is from complications of emphysema. Father Patient's father is at the age of 49 from sepsis. Social History Social History Social History: The patient lives in [place] with his . They have 2 adult children, both of whom are adopted. Retired from [employer]. Lifelong nonsmoker. Drinks perhaps 1 beer a day at the most. No illicit substance use. He designates his Elinor as his surrogate decision maker and he wishes to be a full code. Smoking status: Never smoker Alcohol intake: current Drinks per week: 7 Alcohol use details: BEER Substance use: never Living arrangements: with family Spiritual care concerns: No Anes - Eval Final PreProcedure Day of Procedure 04/09/22 07:40 Patient weight: normal Heart: regular rate and rhythm (paced) Lungs: clear to auscultation Airway: Mallampati scale class II Neurological: alert and oriented Last oral intake: >/= 8 h
--- NOTE | 2022-04-09 08:22 | WPDHPUPDATE1 ---
History and Physical Update Update Date/Time: 04/09/22 08:22 History and Physical has been reviewed, including an updated exam of the patient. There are NO changes in the patient's condition. Risks, benefits, and alternatives have been discussed and questions answered. Patient agrees to proceed with procedure. Proceed with cysto, holmium laser of bladder calculus, possible left retrograde, , left ureteroscopy with stone extraction , stent, possible turp (transurethral resection of prostate. )
[2022-04-09] MEDS: ceFAZolin 2 GM/D5W 50 ML 2 GM/50 ML BAG IVPB (08:29)
[2022-04-09] MEDS: LIDOCAINE HCL 2% GEL UROJET 10 ML PKG MUCOUS MEM (10:07)
--- NOTE | 2022-04-09 10:13 | P.OP_ITS ---
Procedure Note - Detailed Date of Procedure 04/09/22 Pre-op Diagnosis left ureteral stone, bladder stone x5 Post-op Diagnosis Same Procedure Performed Cystoscopy, left retrograde pyelogram, left ureteroscopy with holmium laser, stone extraction, left ureteral stent placement 4.8 Ecuadorean contour, holmium laser of 5 bladder calculi with extraction Surgeon Delano Rouse MD Anesthesia General Description of Procedure Patient is taken to the operative suite correctly identified. Once general anesthesia was obtained was prepped and draped usual sterile fashion. Twenty- two Ecuadorean scope was inserted into the bladder. He has 5 large bladder stones each measuring approximately 1.5 cm. There are no tumors noted. The left orifice was then cannulated with a guidewire. We dilated the orifice using an 8/10 dilator. Rigid ureteral scope was inserted into the left ureteral orifice the stone was visualized. Patient had what appeared to be somewhat of a patulous urethra at the location of the stone. It was sort of lodged along the medial mucosal area. Using a 273 micron fiber we fragmented this into multiple stones. These were then flushed out. Pyelogram was then performed. There were no residual stones noted. 4.8 Ecuadorean contour stent was then placed with the proximal end in the renal pelvis and the distal in the bladder. We then turned our attention to the bladder stones. Using a 1000 micron fiber we lasered the stones. There were 5 of the stones which took quite a bit of time to fragment. Over 16,000 shocks were given. Fragments were retrieved and sent for analysis. Reinspection revealed no significant stone burden or bleeding. 2% viscous lidocaine was inserted into the urethra patient is taken recovery stable condition. He will follow-up in 7-10 days stent removal. Estimated Blood Loss 0 Drains Yes Packing No Pathology Yes Complications No immediate complications Condition Stable Disposition PACU
[2022-04-09] MEDS: fentaNYL CITRATE INJ (*CRX) 100 MCG/2 ML VIAL 25 MCG IV PUSH ×4 (10:49→11:10)
[2022-04-09] MEDS: ONDANSETRON INJ 4 MG/2 ML VIAL IV PUSH (11:30)
== END 2022-04-09 12:30 | disposition home or self-care (01) ==
PROVIDERS: PCP Family Medicine; Visit Provider Urology
PROC: (CPT 52352; principal; 2022-04-09 08:30)
DX: N20.1 Calculus of ureter (principal); N21.0 Calculus in bladder; R73.03 Prediabetes; I10 Essential (primary) hypertension; M54.12 Radiculopathy, cervical region; Z95.0 Presence of cardiac pacemaker
CPT/HCPCS: 52356; 74420; 82365; 88300; A9270; C1769; C2617; J0131; J0690; J1100; J2405; J2704; J3010; J7120

== ENCOUNTER 2023-10-15 15:12 | Outpatient (CLI) | payer MEDICARE, SELFPAY ==
--- NOTE | ~2023-10-15 | US_ITS ---
EXAMINATION: US carotid duplex BI DATE: 10/15/2023 15:56 INDICATION: Syncope and collapse. Left eye visual disturbance. TECHNIQUE: Grayscale, color Doppler, and pulsed Doppler images of the cervical carotid arteries were obtained. The degree of vessel stenosis is placed in one of the following categories: normal, <50%, 5 0-69%, >=70% but less than near-occlusion, near-occlusion, or total occlusion. Note that percent sten osis relative to normal distal artery lumen diameter is indirectly measured from velocity measurement s as described by Daquan, et al. Radiology 2003; [id number]:[id number]. COMPARISON: None. FINDINGS: RIGHT: The right common carotid artery (CCA) peak systolic velocity (PSV) is 126 cm/s. The right internal ca rotid artery (ICA) PSV is 102 cm/s. The right ICA end-diastolic velocity (EDV) is 25 cm/s. The right ICA/CCA PSV ratio is 0.8. Grayscale and color Doppler images demonstrate no evident plaque or stenosi s in the ICA. The external carotid artery (ECA) PSV is 126 cm/s. There is antegrade flow in the right vertebral artery. LEFT: The left CCA PSV is 122 cm/s. The left ICA PSV is 83 cm/s. The left ICA EDV is 21 cm/s. The left ICA/ CCA PSV ratio is 0.7. Grayscale and color Doppler images demonstrate no evident plaque or stenosis in the ICA. The ECA PSV is 135 cm/s. There is antegrade flow in the left vertebral artery. IMPRESSION: 1. No evident plaque or stenosis in the right internal carotid artery. 2. No evident plaque or stenosis in the left internal carotid artery. Reviewed, dictated and finalized at [facility].
--- NOTE | ~2023-10-15 | CT_ITS ---
EXAMINATION: CT brain wo con DATE: 10/15/2023 16:03 INDICATION: Visual disturbance TECHNIQUE: Computed tomography (CT) of the head was performed without intravenous contrast. The mA wa s adjusted according to patient size. Iterative reconstruction technique was employed. Exam dose: 68 1.00 mGy-cm total exam DLP. COMPARISON: None FINDINGS: Bilateral carotid siphon internal carotid artery calcifications. No intracranial mass lesion or hemorrhage or cerebrovascular accident, midline shift or mass effect. Mild preferentially frontal cortical cerebral volume loss. No subdural or epidural hematoma. No orbital mass lesion. The optic nerves appear symmetric and unremarkable. No sellar or suprasellar mass lesion is detected. Included mastoid air cells and paranasal sinuses are unremarkable. No fracture or bone destruction of the cranial vault. IMPRESSION: Intracranial cerebral atherosclerosis No acute intracranial finding Reviewed, dictated and finalized at [facility]. Reviewed, dictated and finalized at [facility].
== END 2023-10-15 15:13 | disposition home or self-care (01) ==
LOC: ANHIMG 15:15
PROVIDERS: PCP Family Medicine; Visit Provider Nurse Practitioner Family
DX: I67.2 Cerebral atherosclerosis (principal); I10 Essential (primary) hypertension
CPT/HCPCS: 70450; 93880

== ENCOUNTER 2025-02-09 14:41 | Outpatient (CLI) | payer MEDICARE, SELFPAY ==
--- NOTE | ~2025-02-09 | CT_ITS ---
Non-contrast CT scan of the Pelvis Clinical indication: Right lower quadrant pain Technique: 2.5 mm axial scans were obtained through the pelvis without intravenous or oral contrast. Dose reduction technique was used on this scan by utilizing automated exposure control and iterative reconstruction technique. The dose-length product (DLP) was 310.84 mGy-cm. COMPARISON: 04/07/2022 Findings: Questionable mild diffuse urinary bladder wall thickening. Prostate gland enlarged. No path ologic pelvic mass seen. No pelvic lymphadenopathy. Visualized bowel loops are unremarkable, aside from sigmoid diverticulosis. No ascites. Visualized osseous structures are intact. No fracture or dislocation. No peripheral soft tissue mass or fluid collection. Impression: Questionable cystitis versus underdistention. Correlate clinically and with urinalysis. Enlarged prostate gland. Reviewed, dictated and finalized at [facility]. Impression: Questionable cystitis versus underdistention. Correlate clinically and with uri nalysis. Enlarged prostate gland.
== END 2025-02-09 14:42 | disposition home or self-care (01) ==
LOC: GOSHIMG 14:41
PROVIDERS: PCP Family Medicine; Visit Provider Family Medicine
DX: N40.0 Benign prostatic hyperplasia without lower urinary tract symptoms (principal); N30.90 Cystitis, unspecified without hematuria
CPT/HCPCS: 72192